=== PATIENT | male | born 1945 | race Caucasian/White ===

== ENCOUNTER 2022-03-07 03:49 | Inpatient (IN) ==
[2022-03-07] MEDS ORDERED: HYDROmorphone 0.5 MG/0.5 ML SYRINGE IV ONE (03:57)
[2022-03-07] MEDS ORDERED: AZITHROMYCIN 500 MG in DEXTROSE 5% IN WATER 250 ML IV ONE (04:12)
[2022-03-07] MEDS ORDERED: NALOXONE HCL 0.4 MG/ML VIAL IV PRN (04:38)
[2022-03-07] MEDS ORDERED: PROMETHAZINE 25 MG/ML VIAL IM PRN (04:38)
--- NOTE | 2022-03-07 04:45 | Emergency Department Note ---
Lower Extremity Injury HPI General Chief Complaint: Extremity Injury, Lower Stated Complaint: hip fracture Time Seen by Provider: 03/07/22 03:59 Source: EMS Mode of arrival: EMS Limitations: no limitations History of Present Illness HPI Narrative: Narrative: 77-year-old history of heart disease, hypertension, sleep apnea transferred here from [facility] after he was found to have a right hip periprosthetic fracture. He had that right hip replaced just last month on January [address] Hall. Was doing well but then last night he had a mechanical fall while getting up to use the bathroom and fracturing around the hardware. He did not hit his head or pass out. He was seen at [facility], where x-ray confirmed a periprosthetic fracture of the right hip. They obtained typical medical screening labs. They also obtained a chest x-ray because patient has been feeling a bit weak and has had a heavy cough. He was noted to have a right-sided pneumonia and was given a dose of Rocephin. They spoke with Dr. Hall who agreed to accept for further orthopedic management and he was sent here to our ER for hospitalist admission. Upon my evaluation patient is having pain at the right hip denies distal numbn ess tingling denies any head injury. Does also endorse that he has had a heavy productive cough but no chest pain no shortness of breath. No other complaints. No blood thinners he reports but does take aspirin. Related Data Home Medications Medication Instructions Recorded Confirmed acetaminophen 500 mg tablet 1,000 mg PO Q6H PRN 01/17/22 01/21/22 ascorbic acid (vitamin C) 1,000 mg 1 g PO QAM 01/17/22 01/21/22 tablet (Vitamin C) atorvastatin 40 mg tablet 40 mg PO QDAY 01/17/22 01/21/22 ferrous sulfate 325 mg (65 mg 325 mg PO QDAY 01/17/22 01/21/22 iron) tablet (iron) lisinopril 20 mg tablet 20 mg PO QDAY 01/17/22 01/21/22 multivitamin 1 tab PO QDAY 01/17/22 01/21/22 naproxen sodium 220 mg tablet 220 mg PO BID PRN 01/17/22 01/21/22 (Aleve) nitroglycerin 0.4 mg sublingual 0.4 mg SUBLINGUAL Q5M PRN 01/17/22 01/21/22 tablet omega 9-ruz-aid-fish oil 1,000 mg 1 cap PO QDAY 01/17/22 01/21/22 (120 mg-180 mg) capsule (Fish Oil) omeprazole 20 mg tablet,delayed 20 mg PO QDAY 01/17/22 01/21/22 release Previous Rx's Medication Instructions Recorded aspirin 81 mg tablet,delayed 81 mg PO BID #60 tab 01/21/22 release (Ecotrin Low Strength) docusate sodium 100 mg capsule 100 mg PO BID #60 cap 01/21/22 hydrocodone 10 mg-acetaminophen 1 - 2 tab PO Q4H PRN #75 tab 01/21/22 325 mg tablet Allergies Allergy/AdvReac Type Severity Reaction Status Date / Time No Known Drug Allergies Allergy Verified 01/21/22 07:18 Review of Systems ROS ROS Narrative: Narrative: All systems ED: reviewed and negative except as stated. PFSH Narrative Patient History Narrative: Narrative: Medical/Surgical/Family History All Active Problems (Updated 03/07/22 @ 04:44 by Cirilo Jaeger DO) Closed hip fracture (Acute) Pneumonia (Acute) Social History Smoking Status: Former smoker Exam Narrative Narrative: Narrative: Constitutional: normally developed, no acute distress . Head: Normocephalic, atraumatic, Eyes: No Icterus, ENT: Moist mucus membranes, Neck: Supple, Cardiac: Normal heart sounds, palpable radial and dorsalis pedis pulses, Pulmonary: Normal respiratory effort. Breath sounds clear, no wheeze, rhonchi, rales, Gastrointestinal: Abdomen soft, non-distended, non-tender, Musculoskeletal: Right lower extremity is slightly shortened and externally rotated but wiggles toes sensation and pulses intact. Skin: warm, dry Neuro: Alert and oriented. General Limitations: no limitations Course Vital Signs Vital signs: Vital Signs Temperature 37.4 C H 03/07/22 03:50 Pulse Rate 84 03/07/22 03:50 Respiratory Rate 17 03/07/22 03:50 Pulse Oximetry (%) 95 03/07/22 03:50 Temperature 37.4 C H 03/07/22 03:50 Pulse Rate 82 03/07/22 04:09 Respiratory Rate 17 03/07/22 03:50 Blood Pressure 105/67 03/07/22 04:06 Pulse Oximetry (%) 91 03/07/22 04:09 MDM MDM Narrative Medical decision making narrative: Narrative: Patient transferred here for right hip periprosthetic fracture Dr. Hall already aware, will be admitted to the hospitalist. Basic studies were already obtained at outside facility and they pushed over their imaging which I did review. I did review their labs: electrolytes sodium 132, potassium 3.8, chloride 97, bicarb 26, BUN 25, creatinine 1.56 Does also have mildly elevated ALT and AST is in the 100s range with a normal bilirubin CBC no leukocytosis, hemoglobin 12.3, platelets 243 Urinalysis negative for infection He was already given Rocephin at outside facility, I did add on 500 mg azithromycin for pneumonia. I have spoken with hospitalist who accepts admission. 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, no acute ischemia nor STEMI criteria Discharge Plan Patient/Caregiver Discharge Instructions Pt seen by [facility]/PA only: No Clinical Impression: Closed hip fracture, Pneumonia Patient Disposition: Xfer As Inpt ([facility]) Condition: Fair Follow up with: Ethan Melendez MD [Primary Care Provider] - Prescriptions: No Action multivitamin [Multiple Vitamin] Tablet 1 tab PO QDAY 0RF ascorbic acid (vitamin C) [Vitamin C] 1,000 mg Tablet 1 g PO QAM 0RF lisinopril 20 mg Tablet 20 mg PO QDAY 0RF acetaminophen 500 mg Tablet 1,000 mg PO Q6H PRN (Reason: Pain) 0RF ferrous sulfate [iron] 325 mg (65 mg iron) Tablet 325 mg PO QDAY 0RF Rx Instructions: Patient states taking one BID made him sick, regardless of taking with food. naproxen sodium [Aleve] 220 mg Tablet 220 mg PO BID PRN (Reason: Pain) 0RF omeprazole 20 mg Tablet,Delayed Release (Dr/Ec) 20 mg PO QDAY 0RF omega 5-hqb-xkn-fish oil [Fish Oil] 1,000 mg (120 mg-180 mg) Capsule 1 cap PO QDAY 0RF nitroglycerin 0.4 mg Tablet, Sublingual 0.4 mg SUBLINGUAL Q5M PRN (Reason: Chest Pain) 0RF Rx Instructions: do not exceed 3 doses per episode atorvastatin 40 mg Tablet 40 mg PO QDAY 0RF hydrocodone-acetaminophen 10-325 mg tablet 1 - 2 tab PO Q4H PRN (Reason: pain) Qty: 75 0RF aspirin [Ecotrin Low Strength] 81 mg tablet,delayed release (DR/EC) 81 mg PO BID Qty: 60 0RF docusate sodium 100 mg capsule 100 mg PO BID Qty: 60 0RF
[2022-03-07] MEDS: HYDROmorphone 0.5 MG/0.5 ML SYRINGE IV PRN ×5 (05:52→23:35)
[2022-03-07] MEDS: LACTATED RINGERS 1,000 ML IV SCH ×2 (05:52→18:46)
[2022-03-07] MEDS ORDERED: POLYETHYLENE GLYCOL 3350 17 GM PACKET PO PRN (07:55)
[2022-03-07] MEDS ORDERED: ACETAMINOPHEN 650 MG/65 ML BAG IV PRN (07:55)
[2022-03-07] MEDS ORDERED: ONDANSETRON 4 MG/2 ML VIAL IV PRN (07:55)
[2022-03-07] MEDS ORDERED: MAGNESIUM SULFATE 2 GM/50 ML BAG IV PRN (07:55)
[2022-03-07] MEDS ORDERED: POTASSIUM CHLORIDE 40 MEQ in DEXTROSE 5% IN WATER 500 ML IV PRN (07:55)
[2022-03-07] MEDS ORDERED: BISACODYL 10 MG SUPP.RECT PR PRN (07:55)
[2022-03-07] MEDS ORDERED: MELATONIN 3 MG TABLET PO PRN (07:55)
[2022-03-07] MEDS ORDERED: ONDANSETRON 4 MG ODT TABLET SL PRN (07:55)
--- NOTE | 2022-03-07 07:59 | Internal Med History&Physical ---
HPI History of Present Illness Patient information: Note initiated : 03/07/22 at 7:58 am Service Date, if different from initiated Date: [] Patient: Lita Topete a 77 y/o M admitted on 03/07/22 for Hip Fracture. Chief Complaint: [] History of present illness: Mr. Topete is a 77 year old M with a history of HTN/sleep apnea/PVD/HLD who presented to [place] ER last night after he fell in the bathroom. Patient apparently has problems with incontinence and dribbling and was trying to get back from the hospital and missed the door handle and subsequently landed on the floor sustaining injury to the right lower extremity. He was down on the floor where his discovered him and got him to the ER. Initial work-up was consistent with right hip fracture periprosthetic area. Orthopedics Dr. Hall was consulted and recommended transfer to [facility] for further evaluation. Additionally chest imaging consistent with right-sided pneumonia. Patient was started on Rocephin/crystalloid/pain medications. After brief evaluation the ER hospital service was consulted for admission to facilitate orthopedic intervention/management of pneumonia. At the time of evaluation patient is alert and oriented. He endorses history as above. He was recently discharged following right total hip arthroplasty on January 22 and has been getting rehab at [place]. He also never felt well post surgery and has been battling with constipation, loss of appetite, over 15 pound weight loss in the last few days. He also endorses to shortness of breath, fever, chills for which he was evaluated in the ER on Friday and was diagnosed with stomach flu. He also endorses to weakness, dribbling urine, lightheadedness fatigue malaise and not been able to function Review of systems 10 point review system was performed and is negative except as above PFSH PFSH All Active Problems (Updated 03/07/22 @ 04:44 by Cirilo Jaeger DO) Closed hip fracture (Acute) Pneumonia (Acute) MEDS/ALLERGIES Home Medications and Allergies Home Medications Medication Instructions Recorded Confirmed Type acetaminophen 500 mg tablet 1,000 mg PO Q6H PRN 01/17/22 03/07/22 History ascorbic acid (vitamin C) 1,000 mg 1 g PO QAM 01/17/22 03/07/22 History tablet (Vitamin C) atorvastatin 40 mg tablet 40 mg PO QDAY 01/17/22 03/07/22 History ferrous sulfate 325 mg (65 mg 325 mg PO QDAY 01/17/22 03/07/22 History iron) tablet (iron) lisinopril 20 mg tablet 20 mg PO QDAY 01/17/22 03/07/22 History multivitamin 1 tab PO QDAY 01/17/22 03/07/22 History naproxen sodium 220 mg tablet 220 mg PO BID PRN 01/17/22 03/07/22 History (Aleve) nitroglycerin 0.4 mg sublingual 0.4 mg SUBLINGUAL Q5M PRN 01/17/22 03/07/22 History tablet omega 4-poy-nef-fish oil 1,000 mg 1 cap PO QDAY 01/17/22 03/07/22 History (120 mg-180 mg) capsule (Fish Oil) omeprazole 20 mg tablet,delayed 20 mg PO QDAY 01/17/22 03/07/22 History release aspirin 81 mg tablet,delayed 81 mg PO BID #60 tab 01/21/22 03/07/22 Rx release (Ecotrin Low Strength) docusate sodium 100 mg capsule 100 mg PO BID #60 cap 01/21/22 03/07/22 Rx hydrocodone 10 mg-acetaminophen 1 - 2 tab PO Q4H PRN #75 tab 01/21/22 03/07/22 Rx 325 mg tablet Allergies Allergy/AdvReac Type Severity Reaction Status Date / Time No Known Drug Allergies Allergy Verified 03/07/22 06:31 EXAM Constitutional Vitals: Temp Pulse Resp BP Pulse Ox 97.7 F 78 18 126/81 98 03/07/22 07:18 03/07/22 07:18 03/07/22 07:18 03/07/22 05:40 03/07/22 07:18 Head normocephalic Oral cavity moist No ear or nose discharge Eye no subconjunctival pallor, movement symmetrical S1-S2 regular Minimally labored breathing on 1 L oxygen Distended but nontender abdomen Lower extremity no cyanosis clubbing or joint swelling, right lower extremity slightly shortened pain at right groin, RUE prior digital amputations Skin no suspicious lesion Psych anxious but no hallucination Neuro normal higher function on limited neuro exam A/P Narrative A/P Narrative: * Community-acquired pneumonia, empiric antibiotic coverage, sputum cultures * Right hip fracture, orthopedic consulted. Continue pain management/n.p.o. * Mild hypoxia secondary to pneumonia. Continue supplemental oxygen * Preop risk evaluation-based on RCRI [place] [employer] stratification patient would be a moderate to high risk category in the setting of advanced a ge/sleep apnea/functional metabolic equivalent of 1 at baseline., However there are no modifiable risk factors other than pneumonia which is mild considering patient is nontoxic with a normal white count,No history of decompensated heart failure/CVA or recent CT, stable hemodynamics. Surgery and anesthesia specific risks will be addressed by individual care providers. * History of CAD status post stenting currently on aspirin/statin and managed by Dr. Gill cardiology * Obstructive sleep apnea continue CPAP * History of hypertension hold antihypertensives until surgery. * GERD continue PPI * HLD continue statin Plan * Inpatient admission * Orthopedic consult * Antibiotic coverage * N.p.o. * Pre-existing medical condition management home medications * Postop PT/nutrition support Time Spent With Patient Time: Total time spent is greater than 50% in coordination of care (as documented) at patient's floor/unit and/or counseling patient:
[2022-03-07] MEDS: MULTIVIT,THER IRON,CA,FA & MIN 1 TABLET PO SCH (10:14)
[2022-03-07] MEDS: DOCUSATE SODIUM 100 MG CAPSULE PO SCH ×2 (10:14→20:20)
[2022-03-07] MEDS: cefTRIAXone 2 GM in DEXTROSE 5% IN WATER 50 ML IV SCH (10:26)
[2022-03-07] MEDS: 0.9 % SODIUM CHLORIDE 10 ML SYRINGE IV SCH ×2 (16:21→20:22)
[2022-03-07] MEDS ORDERED: oxyCODONE HCL 5 MG TABLET PO PRN (19:27)
[2022-03-07] MEDS ORDERED: TEMAZEPAM 15 MG CAPSULE PO PRN (19:29)
[2022-03-07] MEDS: METHOCARBAMOL 750 MG TABLET PO PRN (20:20)
[2022-03-07] MEDS: oxyCODONE HCL 5 MG TABLET PO PRN (20:21)
[2022-03-07] MEDS: SENNOSIDES/DOCUSATE SODIUM 1 TAB TABLET PO SCH (20:22)
--- NOTE | 2022-03-07 20:54 | EKG ---
[facility] Test Date: 2022-03-07 Pat Name: Lita Topete Department: ED Room: Gender: Male Retail Advisor: NATALIE : 1945 Requested By: Cirilo Jaeger Order Number: [id number] Reading MD: Benson Wei Measurements Intervals [place] Rate: 79 P: 42 OR: 157 QRS: 8 QRSD: 96 T: 3 QT: 366 QTc: 420 Interpretive Statements Sinus rhythm Probable left atrial enlargement Inferior infarct, old Baseline wander in lead(s) V5 Electronically Signed On 03-07-2022 20:54:28 PDT by Benson Wei /store/M0/[id number]
[2022-03-08] MEDS: oxyCODONE HCL 5 MG TABLET PO PRN ×2 (05:25→20:43)
[2022-03-08] MEDS: METHOCARBAMOL 750 MG TABLET PO PRN ×2 (05:25→20:43)
[2022-03-08] MEDS: 0.9 % SODIUM CHLORIDE 10 ML SYRINGE IV SCH ×4 (05:26→20:48)
[2022-03-08] MEDS: LACTATED RINGERS 1,000 ML IV SCH ×4 (05:30→22:44)
[2022-03-08] MEDS: ACETAMINOPHEN 325 MG TABLET PO PRN (05:50)
[2022-03-08] MEDS ORDERED: ceFAZolin 2 GM in DEXTROSE 5% IN WATER 50 ML IV SCH (06:00)
[2022-03-08 06:44] LABS: Basophils # (Auto) 0.01 K/mcL (0.00-0.30); Basophils % (Auto) 0.2 % (0.0-2.0); Eosinophils # (Auto) 0.08 K/mcL (0.00-0.70); Eosinophils % (Auto) 1.4 % (0.0-7.0); Hematocrit 33.8 % (40.1-51.0); Hemoglobin 11.3 g/dL (13.7-17.5); Lymphocytes # (Auto) 0.64 K/mcL (1.50-4.80); Lymphocytes % (Auto) 11.1 % (15.5-49.0); Mean Cell Volume 89.9 fL (80.0-100.0); Mean Corpuscular HGB Conc 33.4 g/dL (31.0-36.0); Mean Platelet Volume 10.8 fL (7.4-10.4); Monocytes # (Auto) 0.75 K/mcL (0.10-0.90); Neutrophils % (Auto) 74.3 % (38.0-78.0); Platelet Count 231 K/mcL (140-440); RBC 3.76 M/mcL (4.63-6.08); Red Cell Distribution Width 13.3 % (11.5-14.5); WBC 5.8 K/mcL (4.5-11.0)
[2022-03-08 07:11] LABS: ALT/SGPT 113 U/L (<40); AST/SGOT 79 U/L (<40); Albumin 2.7 gm/dL (3.2-5.2); Albumin/Globulin Ratio 1.1 (1.0-2.3); Alkaline Phosphatase 235 U/L (39-117); Bilirubin,Direct 0.5 mg/dL (<0.3); Bilirubin,Total 0.8 mg/dL (0.1-1.0); Blood Urea Nitrogen 15 mg/dL (8-23); Calcium 8.1 mg/dL (8.6-10.4); Carbon Dioxide 26 mmol/L (22-30); Chloride 97 mmol/L (96-108); Globulin 2.5 gm/dL (2.2-3.7); Glomerular Filtration Rate 83; Glucose 127 mg/dL (70-105); Lactate Dehydrogenase 238 U/L (135-225); Phosphorous 2.9 mg/dL (2.5-4.5); Triglycerides 128 mg/dL (<150); Uric Acid 4.1 mg/dL (2.5-8.0)
--- NOTE | 2022-03-08 07:16 | Consultation ---
DATE OF CONSULTATION: 03/07/2022 HISTORY OF PRESENT ILLNESS: A 77-year-old with a history of right hip periprosthetic fracture. He had surgery about 6 weeks ago where he had a cementless hip. He states that this occurred when he was going to the bathroom, he had frequency and had not been feeling well, fell down, sustaining a fracture. He laid on the floor until he had assistance. They have taken him into the Emergency Room where he was diagnosed with a periprosthetic right femur fracture. With this, I have ordered another x-ray to help see if there is any way to salvage the stem or if we can just plate the bone around it to make him weightbearing as tolerated. He is receiving antibiotics for the pneumonia. PAST MEDICAL HISTORY: Does have urinary incontinence and difficulties. His vitals have been fairly normal. ALLERGIES: HE LISTS NONE. CURRENT MEDICATIONS: Include Adderall, Avastin 40 mg p.o. every day. He has been on hydrocodone p.r.n. for pain. He has been on lisinopril 20 mg every day, nitroglycerin 0.4 mg sublingual for chest pain, omeprazole for ulcers. PHYSICAL EXAMINATION: GENERAL: He is a very pleasant 77-year-old, who gives an excellent history, in quite a bit of pain today. He is about 5 feet 8 inches, 228 pounds, in good overall condition. LUNGS: He does have some rales or rhonchi on his right side, but no difficulty in breathing. CARDIOVASCULAR: Regular rate and rhythm. No murmurs, rubs, or gallops. EXTREMITIES: His right leg shortened and externally rotated. His foot is pink and warm. No open wounds, lacerations, or abrasions. We have ordered x-rays of his right hip. Ironside x-rays show a periprosthetic fracture of the right hip with a total hip in place. I talked to the patient about the treatment options. There are not any real options other than to fix the fracture and try to bypass the fracture enough to allow him to be weightbearing. This will be done tomorrow about noon. In the meantime, they stabilized the pneumonia with antibiotics. He understands the risks and benefits of the surgery, heart attacks and strokes are real possibilities. We will let the patient eat today and even drink apple juice up until 2 hours prior to his surgery, which would be scheduled at 2:00 p.m. tomorrow. RBH:erich Job ID: [id number] Doc ID: [id number] Jaciel Sibley MD
--- NOTE | 2022-03-08 07:34 | XRay Report ---
HISTORY: Fracture proximal right femur FINDINGS: There is an acute, long obliquely oriented fracture of the proximal right femur. Extends from the distal end of the greater trochanter, across the metal hip prosthesis to the medial shaft of the femur. There is mild varus angulation. The prosthesis remains well-positioned and is not fractured. The alignment is unchanged from the prior x-ray done at [facility] on 03/06/22. IMPRESSION: Fractured proximal right femur with mild angulation deformity Interpreted and Authenticated by: Dilan Rdz 03/08/22
--- NOTE | 2022-03-08 07:44 | XRay Report ---
HISTORY: Follow-up pneumonia FINDINGS: There is a moderate size consolidating infiltrate in the right lower thorax. This obscures the right heart border. This is predominantly located in the right middle lobe there may be involvement in the right lower lobe as well. This has become worse since 03/06/22. Right upper lobe is clear. Left lung is clear. No pleural effusion is present. The heart size is normal. No pulmonary vascular congestion is present. 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 IMPRESSION: Worsening pneumonia in the right middle lobe Interpreted and Authenticated by: Dilan Rdz 03/08/22
--- NOTE | 2022-03-08 08:17 | Internal Med Progress Note ---
SUBJECTIVE Subjective Patient information: Note initiated : 03/08/22 at 8:12 am Service Date, if different from initiated Date: [] Patient: Lita Topete a 77 y/o M admitted on 03/07/22 for Hip Fracture. Chief Complaint: [] Interval history: Mr. Topete is a 77 year old M with a history of HTN/sleep apnea/PVD/HLD who presented to [place] ER last night after he fell in the bathroom. Patient apparently has problems with incontinence and dribbling and was trying to get back from the hospital and missed the door handle and subsequently landed on the floor sustaining injury to the right lower extremity. He was down on the floor where his discovered him and got him to the ER. Initial work-up was consistent with right hip fracture periprosthetic area. Orthopedics Dr. Hall was consulted and recommended transfer to [facility] for further evaluation. Additionally chest imaging consistent with right-sided pneumonia. Patient was started on Rocephin/crystalloid/pain medications. After brief evaluation the ER hospital service was consulted for admission to facilitate orthopedic intervention/management of pneumonia. Pain in good control, white count 5.8, sodium 133, 03/08 patient overnight stable, currently n.p.o., surgery at 2 PM, continuing antibiotics. Denies fever chills, currently on room air. Stable hemodynamics. No additional concerns expressed with nursing staff. Will review postop. Constitutional Vitals: Vital Signs Temp Pulse Resp BP Pulse Ox 97.3 F 90 17 139/72 93 03/08/22 07:15 03/08/22 07:15 03/08/22 07:15 03/08/22 07:15 03/08/22 07:15 Period Temp Pulse Resp BP Sys/Chavez Pulse Ox Last 24 Hr 97.0 F-102.3 F 81-103 - 112-140/60-79 87-95 Intake and Output 03/07/22 03/08/22 03/08/22 21:59 05:59 13:59 Intake Total 1768 1205 Output Total 450 1000 Balance 1318 205 Weight 104.689 kg Alert oriented Nonlabored breathing Right hip pain and restricted movement On room air No anxiety Intake & Output: Intake & Output 03/07/22 03/08/22 03/08/22 21:59 05:59 13:59 Intake Total 1768 1205 Output Total 450 1000 Balance 1318 205 Weight 104.689 kg Intake: IV 968 805 Lactated Ringers 1,000 ml @ 75 968 805 mls/hr IV .[id number] [facility] Rx#: [id number] Oral 800 400 Output: Urine Catheter Amount 450 1000 Other: Meal Dinner Percent of Meal Consumed 100% Feeding Ability Independent Urine Appearance Clear Clear Uretheral (Reyna) Clear Urine Color Bright Yellow Bright Yellow Uretheral (Reyna) Bright Yellow # Bowel Movements 0 OBJ DATA Labs CBC & Chem 7: 03/08/22 05:35 03/08/22 05:35 Labs: Abnormal Lab Results 03/08/22 03/08/22 03/07/22 05:35 05:35 08:09 RBC 3.76 L Hgb 11.3 L Hct 33.8 L MPV 10.8 H Lymph % (Auto) 11.1 L [place] % (Auto) 13.0 H Lymph # (Auto) 0.64 L Glucose 127 H Calcium 8.1 L Direct Bilirubin 0.5 H GGT 272 H AST 79 H ALT 113 H Alkaline Phosphatase 235 H Lactate Dehydrogenase 238 H Total Protein 5.2 L Albumin 2.7 L Procalcitonin 0.50 H Meds: Medications Acetaminophen (Acetaminophen 325 Mg Tablet) 650 mg PO Q4-6HP PRN; Protocol PRN Reason: Per Pain Protocol/Fever > 101 Last Admin: 03/08/22 05:50 Dose: 650 mg Documented by: Bisacodyl (Bisacodyl 10 Mg Supp.Rect) [address] Q2-3DAYS PRN PRN Reason: Constipation Docusate Sodium (Docusate Sodium 100 Mg Capsule) 100 mg PO BID [facility] Last Admin: 03/07/22 20:20 Dose: 100 mg Documented by: Hydromorphone HCl (Hydromorphone 0.5 Mg/0.5 Ml Syringe) 0.5 mg IV Q2HP PRN; Protocol PRN Reason: Per Pain Protocol Last Admin: 03/07/22 23:35 Dose: 0.5 mg Documented by: Lactated Ringer's (Lactated Ringers) 1,000 mls @ 75 mls/hr IV .[id number] [facility] Last Admin: 03/08/22 05:30 Dose: 75 mls/hr Documented by: Azithromycin 500 mg/ Dextrose 250 mls @ 250 mls/hr IV Q24H GLORY; Protocol Stop: 03/09/22 10:59 Potassium Chloride 40 meq/ (Dextrose) 520 mls @ 130 mls/hr IV UD PRN PRN Reason: K+ = or < 3.5 Acetaminophen (Ofirmev) 650 mg in 65 mls @ 130 mls/hr IV Q6HP PRN; Protocol PRN Reason: Per Pain Protocol/Fever > 101 Magnesium Sulfate (Magnesium Sulfate) 2 gm in 50 mls @ 50 mls/hr IV UD PRN PRN Reason: MG = or < 1.7 Ceftriaxone Sodium 2 gm/ (Dextrose) 50 mls @ 100 mls/hr IV Q24H GLORY; Protocol Last Infusion: 03/07/22 11:00 Dose: Infused Documented by: Cefazolin Sodium 2 gm/ (Dextrose) 50 mls @ 100 mls/hr IV PREOP GLROY; Protocol Stop: 03/08/22 17:00 Iron Carb/Multivit/[place]/Folic Acid (Multivit,Ther Iron,Ca,Fa & Min 1 Tablet) 1 tab PO DAILY [facility] Last Admin: 03/07/22 10:14 Dose: Not Given Documented by: Melatonin (Melatonin 3 Mg Tablet) 3 mg PO HSP PRN PRN Reason: Insomnia Methocarbamol (Methocarbamol 750 Mg Tablet) 750 mg PO Q6HP PRN PRN Reason: Muscle Spasm Last Admin: 03/08/22 05:25 Dose: 750 mg Documented by: Naloxone HCl (Naloxone Hcl 0.4 Mg/Ml Vial) 0.1 mg IV Q2MIN PRN PRN Reason: Opiate Reversal Ondansetron HCl (Ondansetron 4 Mg Odt Tablet) 4 mg SL Q4-6HP PRN; Protocol PRN Reason: Nausea And Vomiting Ondansetron HCl (Ondansetron 4 Mg/2 Ml Vial) 4 mg IV Q4-6HP PRN; Protocol PRN Reason: Nausea And Vomiting Oxycodone HCl (Oxycodone Hcl 5 Mg Tablet) 0 mg PO Q4HP PRN; Protocol PRN Reason: Per Pain Protocol Last Admin: 03/08/22 05:25 Dose: 10 mg Documented by: Polyethylene Glycol (Polyethylene Glycol 3350 17 Gm Packet) 17 gm PO DAILYP PRN PRN Reason: Constipation Promethazine HCl (Promethazine 25 Mg/Ml Vial) 12.5 mg IM Q6HP PRN; Protocol PRN Reason: Nausea And Vomiting Senna/Docusate Sodium (Sennosides/Docusate Sodium 1 Tab Tablet) 1 tab PO HS [facility] Last Admin: 03/07/22 20:22 Dose: 1 tab Documented by: Sodium Chloride (0.9 % Sodium Chloride 10 Ml Syringe) 10 ml IV Q8 [facility] Last Admin: 03/08/22 05:26 Dose: Not Given Documented by: Temazepam (Temazepam 15 Mg Capsule) 15 mg PO HSP PRN PRN Reason: Insomnia A/P Narrative A/P Narrative: * Community-acquired pneumonia, clinically responding to empiric antibiotic coverage, sputum cultures negative so far. Normal white count * Right hip fracture periprosthetic orthopedic consulted. Surgery at 2 PM. Currently n.p.o. * Mild hypoxia secondary to pneumonia. Resolved now on room air * Preop risk evaluation-based on RCRI [place] [employer] stratification patient would be a moderate to high risk category in the setting of advanced age/sleep apnea/functional metabolic equivalent of 1 at baseline., However there are no modifiable risk factors other than pneumonia which is mild considering patient is nontoxic with a normal white count, No history of decompensated heart failure/CVA or recent MA, CKD or IDDM, stable hemodynamics. Surgery and anesthesia specific risks will be addressed by individual care providers. * History of CAD status post stenting currently on aspirin/statin and managed by Dr. Gill cardiology * Obstructive sleep apnea continue CPAP at night * History of hypertension hold antihypertensives until surgery. * GERD continue PPI * HLD continue statin Plan * Review postop * Continue antibiotic coverage * N.p.o./pain management * Pre-existing medical condition management home medications * Postop PT/nutrition support Time Spent With Patient Time: Total time spent is greater than 50% in coordination of care (as documented) at patient's floor/unit and/or counseling patient: QUALITY VTE Deep Vein Thrombosis/Pulmonary Embolism Present on Admission: No
[2022-03-08] MEDS: cefTRIAXone 2 GM in DEXTROSE 5% IN WATER 50 ML IV SCH (08:21)
[2022-03-08] MEDS: DOCUSATE SODIUM 100 MG CAPSULE PO SCH ×2 (11:06→20:43)
[2022-03-08] MEDS: MULTIVIT,THER IRON,CA,FA & MIN 1 TABLET PO SCH (11:07)
[2022-03-08] MEDS: AZITHROMYCIN 500 MG in DEXTROSE 5% IN WATER 250 ML IV SCH (11:24)
[2022-03-08] MEDS ORDERED: NITROGLYCERIN 0.4 MG TAB.SUBL SL PRN (12:44)
--- NOTE | 2022-03-08 12:44 | Internal Med Progress Note ---
SUBJECTIVE Subjective Patient information: Note initiated : 03/08/22 at 12:39 pm Service Date, if different from initiated Date: [] Patient: Lita Topete a 77 y/o M admitted on 03/07/22 for Hip Fracture. Chief Complaint: [] Interval history: Mr. Topete is a 77 year old M with a history of HTN/sleep apnea/PVD/HLD who presented to [place] ER last night after he fell in the bathroom. Patient apparently has problems with incontinence and dribbling and was trying to get back from the hospital and missed the door handle and subsequently landed on the floor sustaining injury to the right lower extremity. He was down on the floor where his discovered him and got him to the ER. Initial work-up was consistent with right hip fracture periprosthetic area. Orthopedics Dr. Hall was consulted and recommended transfer to [facility] for further evaluation. Additionally chest imaging consistent with right-sided pneumonia. Patient was started on Rocephin/crystalloid/pain medications. After brief evaluation the ER hospital service was consulted for admission to facilitate orthopedic intervention/management of pneumonia. Pain in good control, white count 5.8, sodium 133, 03/08 patient overnight stable, currently n.p.o., surgery at 2 PM, continuing antibiotics. Denies fever chills, currently on room air. Stable hemodynamics. No additional concerns expressed with nursing staff. Will review postop. Constitutional Vitals: Vital Signs Temp Pulse Resp BP Pulse Ox 97.1 F 80 20 130/73 99 03/08/22 11:00 03/08/22 11:00 03/08/22 11:00 03/08/22 11:00 03/08/22 11:00 Period Temp Pulse Resp BP Sys/Chavez Pulse Ox Last 24 Hr 97.0 F-102.3 F 80-103 17-22 130-140/67-79 87-99 Intake and Output 03/07/22 03/08/22 03/08/22 21:59 05:59 13:59 Intake Total 1768 1205 50 Output Total 450 1000 Balance 1318 205 50 Weight 104.689 kg 104.689 kg Patient Weight 03/09/22 05:59 Weight 104.689 kg Intake & Output: Intake & Output 03/07/22 03/08/22 03/08/22 21:59 05:59 13:59 Intake Total 1768 1205 50 Output Total 450 1000 Balance 1318 205 50 Weight 104.689 kg 104.689 kg Intake: IV 968 805 50 Lactated Ringers 1,000 ml @ 75 968 805 mls/hr IV .[id number] [facility] Rx#: [id number] Rocephin 2 gm In Dextrose 5% in 50 Water 50 ml @ 100 mls/hr IV Q24H [facility] Rx#:[id number] Oral 800 400 Output: Urine Catheter Amount 450 1000 Other: Meal Dinner Percent of Meal Consumed 100% Feeding Ability Independent Urine Appearance Clear Clear Uretheral (Eryna) Clear Urine Color Bright Yellow Bright Yellow [place] Uretheral (Reyna) Bright Yellow [place] # Bowel Movements 0 Exam: General: Alert, Awake, No acute Distress, obese Eyes/N/T: EOMI, Head/Neck: neck supple, CV: RRR, No murmurs, Pulm: Clear b/l, no wheezing/rhonchi/rales Abd: soft, nontender, +BS x4 Ext: no clubbing/cyanosis/edema Neuro: Alert, no focal deficits, moves all extremities, Skin: warm/dry OBJ DATA Labs CBC & Chem 7: 03/08/22 05:35 03/08/22 05:35 Labs: Abnormal Lab Results 03/08/22 03/08/22 03/07/22 05:35 05:35 08:09 RBC 3.76 L Hgb 11.3 L Hct 33.8 L MPV 10.8 H Lymph % (Auto) 11.1 L [place] % (Auto) 13.0 H Lymph # (Auto) 0.64 L Glucose 127 H Calcium 8.1 L Direct Bilirubin 0.5 H GGT 272 H AST 79 H ALT 113 H Alkaline Phosphatase 235 H Lactate Dehydrogenase 238 H Total Protein 5.2 L Albumin 2.7 L Procalcitonin 0.50 H Meds: Medications Acetaminophen (Acetaminophen 325 Mg Tablet) 650 mg PO Q4-6HP PRN; Protocol PRN Reason: Per Pain Protocol/Fever > 101 Last Admin: 03/08/22 05:50 Dose: 650 mg Documented by: Bisacodyl (Bisacodyl 10 Mg Supp.Rect) 10 mg [place] Q2-3DAYS PRN PRN Reason: Constipation Docusate Sodium (Docusate Sodium 100 Mg Capsule) 100 mg PO BID [facility] Last Admin: 03/08/22 11:06 Dose: Not Given Documented by: Hydromorphone HCl (Hydromorphone 0.5 Mg/0.5 Ml Syringe) 0.5 mg IV Q2HP PRN; Protocol PRN Reason: Per Pain Protocol Last Admin: 03/07/22 23:35 Dose: 0.5 mg Documented by: Lactated Ringer's (Lactated Ringers) 1,000 mls @ 75 mls/hr IV .[id number] [facility] Last Admin: 03/08/22 05:30 Dose: 75 mls/hr Documented by: Azithromycin 500 mg/ Dextrose 250 mls @ 250 mls/hr IV Q24H [facility]; Protocol Stop: 03/09/22 10:59 Last Admin: 03/08/22 11:24 Dose: 250 mls/hr Documented by: Potassium Chloride 40 meq/ (Dextrose) 520 mls @ 130 mls/hr IV UD PRN PRN Reason: K+ = or < 3.5 Acetaminophen (Ofirmev) 650 mg in 65 mls @ 130 mls/hr IV Q6HP PRN; Protocol PRN Reason: Per Pain Protocol/Fever > 101 Magnesium Sulfate (Magnesium Sulfate) 2 gm in 50 mls @ 50 mls/hr IV UD PRN PRN Reason: MG = or < 1.7 Ceftriaxone Sodium 2 gm/ (Dextrose) 50 mls @ 100 mls/hr IV Q24H [facility]; Protocol Last Infusion: 03/08/22 08:55 Dose: Infused Documented by: Cefazolin Sodium 2 gm/ (Dextrose) 50 mls @ 100 mls/hr IV PREOP [facility]; Protocol Stop: 03/08/22 17:00 Iron Carb/Multivit/Office Equipment Technician/Folic Acid (Multivit,Ther Iron,Ca,Fa & Min 1 Tablet) 1 tab PO DAILY [facility] Last Admin: 03/08/22 11:07 Dose: Not Given Documented by: Melatonin (Melatonin 3 Mg Tablet) 3 mg PO HSP PRN PRN Reason: Insomnia Methocarbamol (Methocarbamol 750 Mg Tablet) 750 mg PO Q6HP PRN PRN Reason: Muscle Spasm Last Admin: 03/08/22 05:25 Dose: 750 mg Documented by: Naloxone HCl (Naloxone Hcl 0.4 Mg/Ml Vial) 0.1 mg IV Q2MIN PRN PRN Reason: Opiate Reversal Ondansetron HCl (Ondansetron 4 Mg Odt Tablet) 4 mg SL Q4-6HP PRN; Protocol PRN Reason: Nausea And Vomiting Ondansetron HCl (Ondansetron 4 Mg/2 Ml Vial) 4 mg IV Q4-6HP PRN; Protocol PRN Reason: Nausea And Vomiting Oxycodone HCl (Oxycodone Hcl 5 Mg Tablet) 0 mg PO Q4HP PRN; Protocol PRN Reason: Per Pain Protocol Last Admin: 03/08/22 05:25 Dose: 10 mg Documented by: Polyethylene Glycol (Polyethylene Glycol 3350 17 Gm Packet) 17 gm PO DAILYP PRN PRN Reason: Constipation Promethazine HCl (Promethazine 25 Mg/Ml Vial) 12.5 mg IM Q6HP PRN; Protocol PRN Reason: Nausea And Vomiting Senna/Docusate Sodium (Sennosides/Docusate Sodium 1 Tab Tablet) 1 tab PO HS [facility] Last Admin: 03/07/22 20:22 Dose: 1 tab Documented by: Sodium Chloride (0.9 % Sodium Chloride 10 Ml Syringe) 10 ml IV Q8 [facility] Last Admin: 03/08/22 05:26 Dose: Not Given Documented by: Temazepam (Temazepam 15 Mg Capsule) 15 mg PO HSP PRN PRN Reason: Insomnia A/P Narrative A/P Narrative: A: *CAP: -clinically responding to empiric antibiotic coverage -sputum cultures negative so far *Right Hip FX: *Preop risk evaluation-based on RCRI [place] [employer] stratification p atient would be a moderate-high risk category in the setting of advanced age/sleep apnea/functional metabolic equivalent of 1 at baseline -However there are no modifiable risk factors other than pneumonia which is mild *Mild hypoxia: 2/2 pneumonia. Resolved now on room air *CAD w/stent: on aspirin/statin and managed by Dr. Gill cardiology *RILEY w/CPAP at night: *HTN/HLD:GERD continue PPI *GERD: Plan: -Ortho for ORIF -Review postop -Continue antibiotic coverage -N.p.o./pain management -Postop PT/nutrition support -home ACEI post op -cont home statin, restart ASA post-op -ppx: post-op per Ortho / home ppi Time Spent With Patient Time: Total time spent is greater than 50% in coordination of care (as documented) at patient's floor/unit and/or counseling patient: QUALITY VTE Deep Vein Thrombosis/Pulmonary Embolism Present on Admission: No
[2022-03-08] MEDS ORDERED: PROPOFOL 200 MG/20 ML VIAL IV ONE (15:00)
[2022-03-08] MEDS ORDERED: DEXAMETHASONE 10 MG/ML VIAL ONE (15:00)
[2022-03-08] MEDS ORDERED: TRANEXAMIC ACID 1,000 MG/10 ML VIAL ONE (15:00)
[2022-03-08] MEDS ORDERED: HYDROmorphone 1 MG/ML SYRINGE ONE (15:00)
[2022-03-08] MEDS ORDERED: LIDOCAINE HCL/PF 100 MG/5 ML SYRINGE IV ONE (15:00)
[2022-03-08] MEDS ORDERED: ROPIVACAINE HCL/PF 20 ML VIAL IJ ONE (15:00)
[2022-03-08] MEDS ORDERED: KETAMINE 50 MG/ML Syringe (ANEST) IV ONE (15:00)
[2022-03-08] MEDS ORDERED: ONDANSETRON 4 MG/2 ML VIAL ONE (15:00)
[2022-03-08] MEDS ORDERED: MAGNESIUM SULFATE 2 GM/50 ML BAG IV ONE (15:00)
[2022-03-08] MEDS ORDERED: MEPERIDINE 25 MG/ML VIAL IV PRN (16:23)
[2022-03-08] MEDS ORDERED: IPRATROPIUM/ALBUTEROL 3 ML AMPUL.NEB NEB PRN (16:23)
[2022-03-08] MEDS ORDERED: NALOXONE HCL 0.4 MG/ML VIAL IV PRN (16:23)
[2022-03-08] MEDS ORDERED: diphenhydrAMINE 50 MG/ML VIAL IV PRN (16:23)
[2022-03-08] MEDS ORDERED: LACTATED RINGERS 250 ML IV PRN (16:23)
[2022-03-08] MEDS ORDERED: fentaNYL 100 MCG/2 ML VIAL IV PRN (16:23)
[2022-03-08] MEDS ORDERED: ONDANSETRON 4 MG/2 ML VIAL IV PRN ×3 (16:23→16:52)
[2022-03-08] MEDS ORDERED: HYDROmorphone 0.5 MG/0.5 ML SYRINGE IV PRN (16:23)
[2022-03-08] MEDS ORDERED: PROMETHAZINE 25 MG/ML VIAL IV PRN (16:23)
[2022-03-08] MEDS ORDERED: LACTATED RINGERS 1,000 ML IV SCH (16:30)
[2022-03-08] MEDS ORDERED: ACETAMINOPHEN 325 MG TABLET PO PRN (16:52)
[2022-03-08] MEDS ORDERED: TRANEXAMIC ACID 1,000 MG/10 ML VIAL IV SCH (16:52)
[2022-03-08] MEDS ORDERED: BISACODYL 10 MG SUPP.RECT PR PRN (16:52)
[2022-03-08] MEDS ORDERED: HYDROmorphone 1 MG/ML SYRINGE IV PRN (16:52)
[2022-03-08] MEDS ORDERED: POLYETHYLENE GLYCOL 3350 17 GM PACKET PO PRN (16:52)
[2022-03-08] MEDS ORDERED: FLEETS ADULT ENEMA PR PRN (16:52)
[2022-03-08] MEDS ORDERED: TEMAZEPAM 15 MG CAPSULE PO PRN (16:52)
--- NOTE | 2022-03-08 17:09 | Brief Operative Note ---
Brief Operative Note Date of procedure: 03/08/22 Pre-op diagnosis: Right femur fx Post-op diagnosis: same Procedure: right femur orif and revision femoral stem Grafts/Implants: Yes Anesthesia: GETA Complications: none Surgeon: Jaciel Sibley Screen Roller: oJse Lopez Estimated blood loss (cc): 250 Specimens Removed/Pathology: none sent Condition: stable Disposition: PACU
--- NOTE | 2022-03-08 17:21 | XRay Report ---
HISTORY: Postop repair fractured right femur FINDINGS: The right hip prosthesis has been revised. There is a new femoral component which has a long andriy. The andriy extends down to the mid shaft of the femur. This holds the oblique fracture in the proximal femur in good alignment. There are cerclage wires around the fracture line. The angulation seen preoperatively has been corrected. IMPRESSION: good alignment following repair of the fractured proximal right femur Interpreted and Authenticated by: Dilan Rdz 03/08/22
[2022-03-08] MEDS: ASPIRIN 81 MG TAB.CHEW CHEWED SCH (20:43)
[2022-03-08] MEDS: SENNOSIDES/DOCUSATE SODIUM 1 TAB TABLET PO SCH (20:46)
[2022-03-08] MEDS ORDERED: SENNOSIDES 1 TABLET PO SCH (21:00)
[2022-03-08] MEDS ORDERED: DOCUSATE SODIUM 100 MG CAPSULE PO SCH (21:00)
[2022-03-08] MEDS: ceFAZolin 1 GM VIAL IV SCH (23:02)
[2022-03-09] MEDS: oxyCODONE HCL 5 MG TABLET PO PRN (03:43)
[2022-03-09] MEDS: LACTATED RINGERS 1,000 ML IV SCH (03:44)
[2022-03-09] MEDS: 0.9 % SODIUM CHLORIDE 10 ML SYRINGE IV SCH ×5 (05:12→20:39)
[2022-03-09 06:53] LABS: Basophils # (Auto) 0.01 K/mcL (0.00-0.30); Basophils % (Auto) 0.2 % (0.0-2.0); Eosinophils # (Auto) 0 K/mcL (0.00-0.70); Eosinophils % (Auto) 0 % (0.0-7.0); Hematocrit 32.8 % (40.1-51.0); Hemoglobin 10.8 g/dL (13.7-17.5); Lymphocytes % (Auto) 6.5 % (15.5-49.0); Mean Cell Volume 90.4 fL (80.0-100.0); Mean Corpuscular HGB Conc 32.9 g/dL (31.0-36.0); Monocytes # (Auto) 0.42 K/mcL (0.10-0.90); Monocytes % (Auto) 6.8 % (1.0-12.0); Neutrophils % (Auto) 86.5 % (38.0-78.0); Platelet Count 261 K/mcL (140-440); RBC 3.63 M/mcL (4.63-6.08); Red Cell Distribution Width 13.1 % (11.5-14.5); WBC 6.2 K/mcL (4.5-11.0)
[2022-03-09] MEDS: OMEPRAZOLE 20 MG CAPSULE PO SCH (07:04)
[2022-03-09] MEDS: ceFAZolin 1 GM VIAL IV SCH (07:04)
[2022-03-09 07:13] LABS: ALT/SGPT 89 U/L (<40); AST/SGOT 87 U/L (<40); Albumin 2.6 gm/dL (3.2-5.2); Albumin/Globulin Ratio 1.1 (1.0-2.3); Alkaline Phosphatase 210 U/L (39-117); Bilirubin,Direct 0.3 mg/dL (<0.3); Bilirubin,Total 0.5 mg/dL (0.1-1.0); Blood Urea Nitrogen 22 mg/dL (8-23); Calcium 8.1 mg/dL (8.6-10.4); Carbon Dioxide 26 mmol/L (22-30); Chloride 96 mmol/L (96-108); Globulin 2.4 gm/dL (2.2-3.7); Glomerular Filtration Rate 83; Glucose 230 mg/dL (70-105); Lactate Dehydrogenase 279 U/L (135-225); Triglycerides 188 mg/dL (<150); Uric Acid 4.6 mg/dL (2.5-8.0)
[2022-03-09] MEDS: METHOCARBAMOL 750 MG TABLET PO PRN ×2 (07:53→16:50)
[2022-03-09] MEDS: ACETAMINOPHEN 325 MG TABLET PO PRN ×2 (07:53→16:49)
[2022-03-09] MEDS: cefTRIAXone 2 GM in DEXTROSE 5% IN WATER 50 ML IV SCH (08:41)
[2022-03-09] MEDS: DOCUSATE SODIUM 100 MG CAPSULE PO SCH ×2 (08:42→20:38)
[2022-03-09] MEDS: MULTIVIT,THER IRON,CA,FA & MIN 1 TABLET PO SCH (08:42)
[2022-03-09] MEDS: ASPIRIN 81 MG TAB.CHEW CHEWED SCH ×2 (08:42→20:38)
[2022-03-09] MEDS: LISINOPRIL 20 MG TABLET PO SCH (08:42)
[2022-03-09] MEDS ORDERED: ATORVASTATIN 40 MG TABLET PO SCH (09:00)
--- NOTE | 2022-03-09 09:23 | Internal Med Progress Note ---
SUBJECTIVE Subjective Patient information: Note initiated : 03/09/22 at 9:16 am Service Date, if different from initiated Date: [] Patient: Lita Topete 77 y/o M admitted on 03/07/22 for Hip Fracture. Chief Complaint: [] Interval history: Mr. Topete is a 77 year old M with a history of HTN/sleep apnea/PVD/HLD who presented to [place] ER last night after he fell in the bathroom. Patient apparently has problems with incontinence and dribbling and was trying to get back from the hospital and missed the door handle and subsequently landed on the floor sustaining injury to the right lower extremity. He was down on the floor where his discovered him and got him to the ER. Initial work-up was consistent with right hip fracture periprosthetic area. Orthopedics Dr. Hall was consulted and recommended transfer to [facility] for further evaluation. Additionally chest imaging consistent with right-sided pneumonia. Patient was started on Rocephin/crystalloid/pain medications. After brief evaluation the ER hospital service was consulted for admission to facilitate orthopedic intervention/management of pneumonia. Pain in good control, white count 5.8, sodium 133, 03/08 patient overnight stable, currently n.p.o., surgery at 2 PM, continuing antibiotics. Denies fever chills, currently on room air. Stable hemodynamics. No additional concerns expressed with nursing staff. Will review postop. 03/09 Patient had ORIF of the hip yesterday. No overnight acute events. Glucose elevated today we will check A1c. Transaminitis noted on admission and persistent. We will check liver ultrasound. Bilirubin okay. Continue antibiotics for pneumonia. Review of Systems: denies headache/fever/chills/nausea/vomiting/chest or abdominal pain/cough/dyspnea/diarrhea. Otherwise see above. Constitutional Vitals: Vital Signs Temp Pulse Resp BP Pulse Ox 97.8 F 85 20 129/81 95 03/09/22 07:42 03/09/22 07:42 03/09/22 07:42 03/09/22 07:42 03/09/22 07:42 Period Temp Pulse Resp BP Sys/Chavez Pulse Ox Last 24 Hr 97 F-98.8 F 75-113 14-20 109-148/59-104 86-100 Intake and Output 03/08/22 03/09/22 03/09/22 21:59 05:59 13:59 Intake Total 2450 1078 1480 Output Total 300 700 Balance 2150 378 1480 Weight 105.097 kg Intake & Output: Intake & Output 03/08/22 03/09/22 03/09/22 21:59 05:59 13:59 Intake Total 2450 1078 1480 Output Total 300 700 Balance 2150 378 1480 Weight 105.097 kg Intake: IV 1991 190 8588 Lactated Ringers 1,000 ml @ 100 3514 053 8602 mls/hr IV .Q10H [facility] Rx#: [id number] Ancef 2 gm In Dextrose 5% in 50 Water 50 ml @ 100 mls/hr IV PREOP [facility] Rx#:[id number] Oral 600 480 IV - Manual Only 1400 Output: Urine Catheter Amount 700 Estimated Blood Loss 300 Other: Meal Breakfast Percent of Meal Consumed 100% Feeding Ability Independent Urine Appearance Clear Sediment Uretheral (Reyna) Clear Urine Color Dark Yellow Dark Yellow Uretheral (Reyna) Bright Yellow Light Leena # Bowel Movements 0 Exam: General: Alert, Awake, No acute Distress, obese Eyes/N/T: EOMI, Head/Neck: neck supple, CV: RRR, No murmurs, Pulm: Clear b/l, no wheezing/rhonchi/rales Abd: soft, nontender, +BS x4 Ext: no clubbing/cyanosis/edema Neuro: Alert, no focal deficits, moves all extremities, Skin: warm/dry OBJ DATA Labs CBC & Chem 7: 03/09/22 05:36 03/09/22 05:36 Labs: Abnormal Lab Results 03/09/22 03/09/22 03/08/22 05:36 05:36 05:35 RBC 3.63 L Hgb 10.8 L Hct 32.8 L MPV 11.0 H Neut % (Auto) 86.5 H Lymph % (Auto) 6.5 L [place] % (Auto) Lymph # (Auto) 0.40 L Sodium 132 L Glucose 230 H 127 H Calcium 8.1 L 8.1 L Magnesium 2.6 H Direct Bilirubin 0.3 H 0.5 H GGT 219 H 272 H AST 87 H 79 H ALT 89 H 113 H Alkaline Phosphatase 210 H 235 H Lactate Dehydrogenase 279 H 238 H Total Protein 5.0 L 5.2 L Albumin 2.6 L 2.7 L Triglycerides 188 H Procalcitonin 03/08/22 03/07/22 05:35 08:09 RBC 3.76 L Hgb 11.3 L Hct 33.8 L MPV 10.8 H Neut % (Auto) Lymph % (Auto) 11.1 L [place] % (Auto) 13.0 H Lymph # (Auto) 0.64 L Sodium Glucose Calcium Magnesium Direct Bilirubin GGT AST ALT Alkaline Phosphatase Lactate Dehydrogenase Total Protein Albumin Triglycerides Procalcitonin 0.50 H Meds: Medications Acetaminophen (Acetaminophen 325 Mg Tablet) 650 mg PO Q4-6HP PRN; Protocol PRN Reason: Per Pain Protocol/Fever > 101 Last Admin: 03/09/22 07:53 Dose: 650 mg Documented by: Hydrocodone Bitart/Acetaminophen (Hydrocodone/Apap 10/325mg Tablet) 1 - 2 tab PO Q4HP PRN; Protocol PRN Reason: Per Pain Protocol Aspirin (Aspirin 81 Mg Tab.Chew) 81 mg CHEWED BID [facility] Last Admin: 03/09/22 08:42 Dose: 81 mg Documented by: Atorvastatin Calcium (Atorvastatin 40 Mg Tablet) 40 mg PO QDAY [facility] Last Admin: 03/09/22 08:42 Dose: 40 mg Documented by: Bisacodyl (Bisacodyl 10 Mg Supp.Rect) 10 mg [place] Q2-3DAYS PRN PRN Reason: Constipation Docusate Sodium (Docusate Sodium 100 Mg Capsule) 100 mg PO BID [facility] Last Admin: 03/09/22 08:42 Dose: 100 mg Documented by: Hydromorphone HCl (Hydromorphone 0.5 Mg/0.5 Ml Syringe) 0.5 mg IV Q2HP PRN; Protocol PRN Reason: Per Pain Protocol Last Admin: 03/07/22 23:35 Dose: 0.5 mg Documented by: Azithromycin 500 mg/ Dextrose 250 mls @ 250 mls/hr IV Q24H [facility]; Protocol Stop: 03/09/22 10:59 Last Infusion: 03/08/22 12:40 Dose: Infused Documented by: Potassium Chloride 40 meq/ (Dextrose) 520 mls @ 130 mls/hr IV UD PRN PRN Reason: K+ = or < 3.5 Acetaminophen (Ofirmev) 650 mg in 65 mls @ 130 mls/hr IV Q6HP PRN; Protocol PRN Reason: Per Pain Protocol/Fever > 101 Magnesium Sulfate (Magnesium Sulfate) 2 gm in 50 mls @ 50 mls/hr IV UD PRN PRN Reason: MG = or < 1.7 Ceftriaxone Sodium 2 gm/ (Dextrose) 50 mls @ 100 mls/hr IV Q24H [facility]; Protocol Last Admin: 03/09/22 08:41 Dose: 100 mls/hr Documented by: Iron Carb/Multivit/[place]/Folic Acid (Multivit,Ther Iron,Ca,Fa & Min 1 Tablet) 1 tab PO DAILY [facility] Last Admin: 03/09/22 08:42 Dose: 1 tab Documented by: Lisinopril (Lisinopril 20 Mg Tablet) 20 mg PO QDAY [facility] Last Admin: 03/09/22 08:42 Dose: 20 mg Documented by: Magnesium Hydroxide (Magnesium Hydroxide 30 Ml Oral.Susp) 30 ml PO BIDP PRN PRN Reason: Constipation Melatonin (Melatonin 3 Mg Tablet) 3 mg PO HSP PRN PRN Reason: Insomnia Methocarbamol (Methocarbamol 750 Mg Tablet) 750 mg PO Q6HP PRN PRN Reason: Muscle Spasm Last Admin: 03/09/22 07:53 Dose: 750 mg Documented by: Naloxone HCl (Naloxone Hcl 0.4 Mg/Ml Vial) 0.1 mg IV Q2MIN PRN PRN Reason: Opiate Reversal Nitroglycerin (Nitroglycerin 0.4 Mg Tab.Subl) 0.4 mg SL Q5M PRN PRN Reason: Chest Pain Omeprazole (Omeprazole 20 Mg Capsule) 20 mg PO ACB [facility] Last Admin: 03/09/22 07:04 Dose: 20 mg Documented by: Ondansetron HCl (Ondansetron 4 Mg Odt Tablet) 4 mg SL Q4-6HP PRN; Protocol PRN Reason: Nausea And Vomiting Ondansetron HCl (Ondansetron 4 Mg/2 Ml Vial) 4 mg IV Q4-6HP PRN; Protocol PRN Reason: Nausea And Vomiting Oxycodone HCl (Oxycodone Hcl 5 Mg Tablet) 0 mg PO Q4HP PRN; Protocol PRN Reason: Per Pain Protocol Last Admin: 03/09/22 03:43 Dose: 5 mg Documented by: Polyethylene Glycol (Polyethylene Glycol 3350 17 Gm Packet) 17 gm PO DAILYP PRN PRN Reason: Constipation Promethazine HCl (Promethazine 25 Mg/Ml Vial) 12.5 mg IM Q6HP PRN; Protocol PRN Reason: Nausea And Vomiting Senna/Docusate Sodium (Sennosides/Docusate Sodium 1 Tab Tablet) 1 tab PO HS [facility] Last Admin: 03/08/22 20:46 Dose: Not Given Documented by: Sodium Biphosphate/Sodium Phosphate (Fleets Adult Enema) 1 dose [place] Q3-4DAYS PRN PRN Reason: Constipation Sodium Chloride (0.9 % Sodium Chloride 10 Ml Syringe) 10 ml IV Q8 [facility] Last Admin: 03/09/22 07:05 Dose: 10 ml Documented by: Temazepam (Temazepam 15 Mg Capsule) 15 mg PO HSP PRN PRN Reason: Insomnia A/P Narrative A/P Narrative: A: *CAP: -clinically responding to empiric antibiotic coverage -sputum cultures negative so far *Right Hip FX: s/p CLAUDIA (03/08) *Preop risk evaluation-based on RCRI [place] [employer] stratification patient would be a moderate-high risk category -in the setting of advanced age/sleep apnea/functional metabolic equivalent of 1 at baseline -However there are no modifiable risk factors other than pneumonia which is mild *Mild hypoxia: 2/2 pneumonia. Resolved now on room air *CAD w/stent: on aspirin/statin and managed by Dr. Gill cardiology *RILEY w/CPAP at night: *HTN/HLD:GERD continue PPI *GERD: *Transaminitis: Unknown etiology Plan: -Ortho for ORIF, pain management -Postop PT/nutrition support -f/u cxr in AM -Continue antibiotic coverage -elevated BG, check a1c -liver u/s -restart home ACEI -cont home statin/ASA -ppx: ASA bid per Ortho / home ppi Plan of Treatment: cont medical management per hospitalist. Mobilize with PT discharge to SNF versus Swing bed 1-2 days. Time Spent With Patient Time: Total time spent is greater than 50% in coordination of care (as documented) at patient's floor/unit and/or counseling patient: Total time spent with greater than 50% in coordination of care (as documented) at patient's floor/unit and/or counseling patient:: 25 - 35 minutes QUALITY VTE Deep Vein Thrombosis/Pulmonary Embolism Present on Admission: No
--- NOTE | 2022-03-09 09:24 | Orthopedic Progress Note ---
SUBJECTIVE Subjective Patient information: Note initiated : 03/09/22 at 9:21 am Service Date, if different from initiated Date: [] Patient: Lita Topete 77 y/o M admitted on 03/07/22 for Hip Fracture. Chief Complaint: No c/o. Principal diagnosis: R hip periprosethetic fx Constitutional Vitals: Vital Signs Temp Pulse Resp BP Pulse Ox 97.8 F 85 20 129/81 95 03/09/22 07:42 03/09/22 07:42 03/09/22 07:42 03/09/22 07:42 03/09/22 07:42 Period Temp Pulse Resp BP Sys/Chavez Pulse Ox Last 24 Hr 97 F-98.8 F 75-113 14-20 109-148/59-104 86-100 Intake and Output 03/08/22 03/09/22 03/09/22 21:59 05:59 13:59 Intake Total 2450 1078 1480 Output Total 300 700 Balance 2150 378 1480 Weight 231 lb 11.2 oz Intake & Output: Intake & Output 03/08/22 03/09/22 03/09/22 21:59 05:59 13:59 Intake Total 2450 1078 1480 Output Total 300 700 Balance 2150 378 1480 Weight 231 lb 11.2 oz Intake: IV 0051 006 0168 Lactated Ringers 1,000 ml @ 100 3555 305 3924 mls/hr IV .Q10H [facility] Rx#: [id number] Ancef 2 gm In Dextrose 5% in 50 Water 50 ml @ 100 mls/hr IV PREOP [facility] Rx#:[id number] Oral 600 480 IV - Manual Only 1400 Output: Urine Catheter Amount 700 Estimated Blood Loss 300 Other: Meal Breakfast Percent of Meal Consumed 100% Feeding Ability Independent Urine Appearance Clear Sediment Uretheral (Reyna) Clear Urine Color Dark Yellow Dark Yellow Uretheral (Reyna) Bright Yellow Light Leena # Bowel Movements 0 Skin Skin exam: Present normal color and warm OBJ DATA Labs CBC & Chem 7: 03/09/22 05:36 03/09/22 05:36 Labs: Abnormal Lab Results 03/09/22 03/09/22 03/08/22 05:36 05:36 05:35 RBC 3.63 L Hgb 10.8 L Hct 32.8 L MPV 11.0 H Neut % (Auto) 86.5 H Lymph % (Auto) 6.5 L [place] % (Auto) Lymph # (Auto) 0.40 L Sodium 132 L Glucose 230 H 127 H Calcium 8.1 L 8.1 L Magnesium 2.6 H Direct Bilirubin 0.3 H 0.5 H GGT 219 H 272 H AST 87 H 79 H ALT 89 H 113 H Alkaline Phosphatase 210 H 235 H Lactate Dehydrogenase 279 H 238 H Total Protein 5.0 L 5.2 L Albumin 2.6 L 2.7 L Triglycerides 188 H Procalcitonin 03/08/22 03/07/22 05:35 08:09 RBC 3.76 L Hgb 11.3 L Hct 33.8 L MPV 10.8 H Neut % (Auto) Lymph % (Auto) 11.1 L Keith % (Auto) 13.0 H Lymph # (Auto) 0.64 L Sodium Glucose Calcium Magnesium Direct Bilirubin GGT AST ALT Alkaline Phosphatase Lactate Dehydrogenase Total Protein Albumin Triglycerides Procalcitonin 0.50 H Bandages c/d/i NVI-distal Meds: Medications Acetaminophen (Acetaminophen 325 Mg Tablet) 650 mg PO Q4-6HP PRN; Protocol PRN Reason: Per Pain Protocol/Fever > 101 Last Admin: 03/09/22 07:53 Dose: 650 mg Documented by: Hydrocodone Bitart/Acetaminophen (Hydrocodone/Apap 10/325mg Tablet) 1 - 2 tab PO Q4HP PRN; Protocol PRN Reason: Per Pain Protocol Aspirin (Aspirin 81 Mg Tab.Chew) 81 mg CHEWED BID [facility] Last Admin: 03/09/22 08:42 Dose: 81 mg Documented by: Atorvastatin Calcium (Atorvastatin 40 Mg Tablet) 40 mg PO QDAY [facility] Last Admin: 03/09/22 08:42 Dose: 40 mg Documented by: Bisacodyl (Bisacodyl 10 Mg Supp.Rect) 10 mg AL Q2-3DAYS PRN PRN Reason: Constipation Docusate Sodium (Docusate Sodium 100 Mg Capsule) 100 mg PO BID [facility] Last Admin: 03/09/22 08:42 Dose: 100 mg Documented by: Hydromorphone HCl (Hydromorphone 0.5 Mg/0.5 Ml Syringe) 0.5 mg IV Q2HP PRN; Protocol PRN Reason: Per Pain Protocol Last Admin: 03/07/22 23:35 Dose: 0.5 mg Documented by: Azithromycin 500 mg/ Dextrose 250 mls @ 250 mls/hr IV Q24H [facility]; Protocol Stop: 03/09/22 10:59 Last Infusion: 03/08/22 12:40 Dose: Infused Documented by: Potassium Chloride 40 meq/ (Dextrose) 520 mls @ 130 mls/hr IV UD PRN PRN Reason: K+ = or < 3.5 Acetaminophen (Ofirmev) 650 mg in 65 mls @ 130 mls/hr IV Q6HP PRN; Protocol PRN Reason: Per Pain Protocol/Fever > 101 Magnesium Sulfate (Magnesium Sulfate) 2 gm in 50 mls @ 50 mls/hr IV UD PRN PRN Reason: MG = or < 1.7 Ceftriaxone Sodium 2 gm/ (Dextrose) 50 mls @ 100 mls/hr IV Q24H [facility]; Protocol Last Admin: 03/09/22 08:41 Dose: 100 mls/hr Documented by: Iron Carb/Multivit/[place]/Folic Acid (Multivit,Ther Iron,Ca,Fa & Min 1 Tablet) 1 tab PO DAILY [facility] Last Admin: 03/09/22 08:42 Dose: 1 tab Documented by: Lisinopril (Lisinopril 20 Mg Tablet) 20 mg PO QDAY [facility] Last Admin: 03/09/22 08:42 Dose: 20 mg Documented by: Magnesium Hydroxide (Magnesium Hydroxide 30 Ml Oral.Susp) 30 ml PO BIDP PRN PRN Reason: Constipation Melatonin (Melatonin 3 Mg Tablet) 3 mg PO HSP PRN PRN Reason: Insomnia Methocarbamol (Methocarbamol 750 Mg Tablet) 750 mg PO Q6HP PRN PRN Reason: Muscle Spasm Last Admin: 03/09/22 07:53 Dose: 750 mg Documented by: Naloxone HCl (Naloxone Hcl 0.4 Mg/Ml Vial) 0.1 mg IV Q2MIN PRN PRN Reason: Opiate Reversal Nitroglycerin (Nitroglycerin 0.4 Mg Tab.Subl) 0.4 mg SL Q5M PRN PRN Reason: Chest Pain Omeprazole (Omeprazole 20 Mg Capsule) 20 mg PO ACB [facility] Last Admin: 03/09/22 07:04 Dose: 20 mg Documented by: Ondansetron HCl (Ondansetron 4 Mg Odt Tablet) 4 mg SL Q4-6HP PRN; Protocol PRN Reason: Nausea And Vomiting Ondansetron HCl (Ondansetron 4 Mg/2 Ml Vial) 4 mg IV Q4-6HP PRN; Protocol PRN Reason: Nausea And Vomiting Oxycodone HCl (Oxycodone Hcl 5 Mg Tablet) 0 mg PO Q4HP PRN; Protocol PRN Reason: Per Pain Protocol Last Admin: 03/09/22 03:43 Dose: 5 mg Documented by: Polyethylene Glycol (Polyethylene Glycol 3350 17 Gm Packet) 17 gm PO DAILYP PRN PRN Reason: Constipation Promethazine HCl (Promethazine 25 Mg/Ml Vial) 12.5 mg IM Q6HP PRN; Protocol PRN Reason: Nausea And Vomiting Senna/Docusate Sodium (Sennosides/Docusate Sodium 1 Tab Tablet) 1 tab PO HS [facility] Last Admin: 03/08/22 20:46 Dose: Not Given Documented by: Sodium Biphosphate/Sodium Phosphate (Fleets Adult Enema) 1 dose AL Q3-4DAYS PRN PRN Reason: Constipation Sodium Chloride (0.9 % Sodium Chloride 10 Ml Syringe) 10 ml IV Q8 [facility] Last Admin: 03/09/22 07:05 Dose: 10 ml Documented by: Temazepam (Temazepam 15 Mg Capsule) 15 mg PO HSP PRN PRN Reason: Insomnia Impressions Impression: R hip periprosethic fx-stable A/P Narrative A/P Narrative: s/p ORIF periprosethetic fx Plan of Treatment: cont medical management per hospitalist. Mobilize with PT discharge to SNF versus Swing bed 1-2 days. Time Spent With Patient Time: Total time spent is greater than 50% in coordination of care (as documented) at patient's floor/unit and/or counseling patient: Total time spent with greater than 50% in coordination of care (as documented) at patient's floor/unit and/or counseling patient:: less than 15 minutes
[2022-03-09] MEDS: AZITHROMYCIN 500 MG in DEXTROSE 5% IN WATER 250 ML IV SCH (09:32)
[2022-03-09 10:09] LABS: Hemoglobin A1C 5.7 % Hgb (4.0-6.0)
--- NOTE | 2022-03-09 15:47 | Ultrasound Report ---
History: Elevated serum transaminase levels FINDINGS: The liver is normal in size and homogeneous. There is no evidence of a mass or infiltration. Doppler shows normal blood flow in the hepatic and portal veins. No ascites is present. Gallbladder is relatively small. The wall measures up to 3 mm in thickness. Patient was nontender while scanning over the gallbladder. The patient ate breakfast prior to the exam which may be causing physiologic contraction of the gallbladder. The common bile duct measures up to 6 mm in greatest diameter, which is within normal limits. The pancreas is mostly obscured by overlying bowel gas. There is no apparent pancreatic mass or pancreatitis. IMPRESSION: Normal liver Partially contracted gallbladder which may be due to the presence of food in the stomach Interpreted and Authenticated by: Dilan Rdz 03/09/22
[2022-03-09] MEDS: MAGNESIUM HYDROXIDE 30 ML ORAL.SUSP PO PRN (16:49)
--- NOTE | 2022-03-09 16:53 | Discharge Summary ---
Discharge Provider Provider Patient information: Note initiated : 03/09/22 at 4:49 pm Service Date, if different from initiated Date: [] Patient: Lita Topete 77 y/o M admitted on 03/07/22 for Hip Fracture. Chief Complaint: [] Date of admission: 03/07/22 05:19 Discharge date: 03/10/22 Primary care physician: Ethan Melendez Consults: 03/07/22 Consult to Physician [CONS] Stat Comment: Consulting Provider: Alonzo Camacho Reason For Exam: Physician to Consult Consult to Physician [CONS] Stat Comment: Consulting Provider: Jaciel Sibley Reason For Exam: Physician to Consult Discharge Meds Discharge Medications Home Medications acetaminophen 500 mg tablet 1,000 mg PO Q6H PRN 01/17/22 [History Confirmed 03/07/22 Last Taken 03/06/22 05:00] ascorbic acid (vitamin C) 1,000 mg tablet (Vitamin C) 1 g PO QAM 01/17/22 [History Confirmed 03/07/22 Last Taken 03/06/22 05:00] ferrous sulfate 325 mg (65 mg iron) tablet (iron) 325 mg PO QDAY 01/17/22 [History Confirmed 03/07/22 Last Taken Unknown] lisinopril 20 mg tablet 20 mg PO QDAY 01/17/22 [History Confirmed 03/07/22 Last Taken 03/06/22 05:00] multivitamin 1 tab PO QDAY 01/17/22 [History Confirmed 03/07/22 Last Taken 03/06/22 05:00] naproxen sodium 220 mg tablet (Aleve) 220 mg PO BID PRN 01/17/22 [History Confirmed 03/07/22 Last Taken Unknown] nitroglycerin 0.4 mg sublingual tablet 0.4 mg SUBLINGUAL Q5M PRN 01/17/22 [History Confirmed 03/07/22 Last Taken Unknown] omega 0-bjq-qvm-fish oil 1,000 mg (120 mg-180 mg) capsule (Fish Oil) 1 cap PO QDAY 01/17/22 [History Confirmed 03/07/22 Last Taken 03/06/22 05:00] omeprazole 20 mg tablet,delayed release 20 mg PO QDAY 01/17/22 [History Confirmed 03/07/22 Last Taken 03/06/22 05:00] aspirin 81 mg tablet,delayed release (Ecotrin Low Strength) 81 mg PO BID #60 tab 01/21/22 [Rx Confirmed 03/07/22 Last Taken 03/06/22 05:00] docusate sodium 100 mg capsule 100 mg PO BID #60 cap 01/21/22 [Rx Confirmed 03/07/22 Last Taken Unknown] hydrocodone 10 mg-acetaminophen 325 mg tablet 1 - 2 tab PO Q4H PRN #75 tab 01/21/22 [Rx Confirmed 03/07/22 Last Taken Unknown] hydrocodone 10 mg-acetaminophen 325 mg tablet 1 tab PO Q4HP PRN #20 tab 03/09/22 [Rx Last Taken Unknown] tamsulosin 0.4 mg capsule 0.4 mg PO QHS #30 cap 03/10/22 [Rx Last Taken Unknown] COURSE Hospital Course Hospital course: Interval history: Mr. Topete is a 77 year old M with a history of HTN/sleep apnea/PVD/HLD who presented to [place] ER last night after he fell in the bathroom. Patient apparently has problems with incontinence and dribbling and was trying to get back from the hospital and missed the door handle and subsequently landed on the floor sustaining injury to the right lower extremity. He was down on the floor where his discovered him and got him to the ER. Initial work-up was consistent with right hip fracture periprosthetic area. Orthopedics Dr. Hall was consulted and recommended transfer to [facility] for further evaluation. Additionally chest imaging consistent with right-sided pneumonia. Patient was started on Rocephin/crystalloid/pain medications. After brief evaluation the ER hospital service was consulted for admission to facilitate orthopedic intervention/management of pneumonia. Pain in good control, white count 5.8, sodium 133, 03/08 patient overnight stable, currently n.p.o., surgery at 2 PM, continuing antibiotics. Denies fever chills, currently on room air. Stable hemodynamics. No additional concerns expressed with nursing staff. Will review postop. 03/09 Patient had ORIF of the hip yesterday. No overnight acute events. Glucose elevated today we will check A1c. Transaminitis noted on admission and persistent. We will check liver ultrasound. Bilirubin okay. Continue antibiotics for pneumonia. A: *CAP: -sputum cultures negative so far *Mild hypoxia: 2/2 pneumonia. Resolved now on room air *Right Hip FX: s/p CLAUDIA (03/08) *CAD w/stent: on aspirin/statin and managed by Dr. Gill cardiology *RILEY w/CPAP at night: *HTN/HLD:GERD continue PPI *GERD: *Transaminitis: Unknown etiology. liver u/s unremarkable *BPH symptoms with UR Plan: -f/u with Ortho -finish antibiotic -hold statin until f/u LFT's outpt with PCP -flomax started -ppx: ASA bid per Ortho Discharge diagnosis: Pneumonia with mild hypoxia right hip fracture transaminitis Secondary discharge diagnosis: CAD obstructive sleep apnea hypertension GERD hyperlipidemia Time Spent with Patient Time attestation: Total time spent providing and/or coordinating discharge services: Time spent: Greater than 30 minutes EXAM Constitutional Vitals: Temp Pulse Resp BP Pulse Ox 97.9 F 83 20 124/76 96 03/09/22 15:47 03/09/22 15:47 03/09/22 15:47 03/09/22 15:47 03/09/22 15:47 Discharge Data Data Completed and Pending Labs on day of discharge: Labs from last 24 hours 03/09/22 03/09/22 03/09/22 05:36 05:36 05:30 WBC 6.2 RBC 3.63 L Hgb 10.8 L Hct 32.8 L MCV 90.4 MCH 29.8 MCHC 32.9 RDW 13.1 Plt Count 261 MPV 11.0 H Neut % (Auto) 86.5 H Lymph % (Auto) 6.5 L [place] % (Auto) 6.8 Eos % (Auto) 0 Baso % (Auto) 0.2 Lymph # (Auto) 0.40 L [place] # (Auto) 0.42 Eos # (Auto) 0 Baso # (Auto) 0.01 Absolute Neutrophils 5.37 Sodium 132 L Potassium 4.5 Chloride 96 Carbon Dioxide 26 Anion Gap 10.0 BUN 22 Creatinine 0.9 GFR Calculation 83 Glucose 230 H Hemoglobin A1c 5.7 Estim Average Glucose 117 Uric Acid 4.6 Calcium 8.1 L Phosphorus 4.0 Magnesium 2.6 H Total Bilirubin 0.5 Direct Bilirubin 0.3 H GGT 219 H AST 87 H ALT 89 H Alkaline Phosphatase 210 H Lactate Dehydrogenase 279 H Total Protein 5.0 L Albumin 2.6 L Globulin 2.4 Albumin/Globulin Ratio 1.1 Triglycerides 188 H Discharge Plan Patient/Caregiver Discharge Instructions Activity: increase activity as tolerated Diet: Regular Diet Prescriptions: New hydrocodone-acetaminophen 10-325 mg Tablet 1 tab PO Q4HP PRN (Reason: Per Pain Protocol) Qty: 20 0RF tamsulosin 0.4 mg capsule 0.4 mg PO QHS Qty: 30 0RF Continued multivitamin Tablet 1 tab PO QDAY 0RF ascorbic acid (vitamin C) [Vitamin C] 1,000 mg Tablet 1 g PO QAM 0RF lisinopril 20 mg Tablet 20 mg PO QDAY 0RF acetaminophen 500 mg Tablet 1,000 mg PO Q6H PRN (Reason: Pain) 0RF ferrous sulfate [iron] 325 mg (65 mg iron) Tablet 325 mg PO QDAY 0RF Rx Instructions: Patient states taking one BID made him sick, regardless of taking with food. naproxen sodium [Aleve] 220 mg Tablet 220 mg PO BID PRN (Reason: Pain) 0RF omeprazole 20 mg Tablet,Delayed Release (Dr/Ec) 20 mg PO QDAY 0RF omega 3-wpt-bpi-fish oil [Fish Oil] 1,000 mg (120 mg-180 mg) Capsule 1 cap PO QDAY 0RF nitroglycerin 0.4 mg Tablet, Sublingual 0.4 mg SUBLINGUAL Q5M PRN (Reason: Chest Pain) 0RF Rx Instructions: do not exceed 3 doses per episode hydrocodone-acetaminophen 10-325 mg tablet 1 - 2 tab PO Q4H PRN (Reason: pain) Qty: 75 0RF aspirin [Ecotrin Low Strength] 81 mg tablet,delayed release (DR/EC) 81 mg PO BID Qty: 60 0RF docusate sodium 100 mg capsule 100 mg PO BID Qty: 60 0RF Discontinued atorvastatin 40 mg Tablet 40 mg PO QDAY 0RF Other Ambulatory Orders: Hepatic Panel (Routine) Timeframe: 3 Days Facility: [facility] - Location: Laboratory Ordered By: Bridger Ferrellnathalie Follow Up Plan Follow up with: Jaciel Sibley MD [Physician] - Ethan Melendez MD [Primary Care Provider] - Patient Disposition: Home, Self-Care Plan of Treatment: cont medical management per hospitalist. Mobilize with PT discharge to SNF versus Swing bed 1-2 days. Prognosis: Fair Rehab Potential: Good I certify that the patient requires SNF services: No Overall status at discharge: patient is progressing back to baseline Discharge Orders: Discharge Order (Routine); Ordered 03/10/22 Ordered By: Bridger Reed [facility] VTE Deep Vein Thrombosis/Pulmonary Embolism Present on Admission: No
[2022-03-09] MEDS: SENNOSIDES/DOCUSATE SODIUM 1 TAB TABLET PO SCH (20:38)
[2022-03-09] MEDS: HYDROcodone/APAP 10/325MG TABLET PO PRN (20:38)
[2022-03-10] MEDS: HYDROcodone/APAP 10/325MG TABLET PO PRN ×3 (01:13→12:10)
[2022-03-10] MEDS: METHOCARBAMOL 750 MG TABLET PO PRN ×2 (01:13→07:24)
[2022-03-10] MEDS: 0.9 % SODIUM CHLORIDE 10 ML SYRINGE IV SCH ×2 (05:22→09:13)
[2022-03-10] MEDS: ACETAMINOPHEN 325 MG TABLET PO PRN (07:23)
[2022-03-10] MEDS: OMEPRAZOLE 20 MG CAPSULE PO SCH (07:24)
[2022-03-10] MEDS: MAGNESIUM HYDROXIDE 30 ML ORAL.SUSP PO PRN (07:26)
[2022-03-10 08:21] LABS: ALT/SGPT 100 U/L (<40); AST/SGOT 104 U/L (<40); Albumin 2.7 gm/dL (3.2-5.2); Alkaline Phosphatase 206 U/L (39-117); Bilirubin,Direct < 0.2 mg/dL (0-0.3); Bilirubin,Total 0.4 mg/dL (0.1-1.0); Blood Urea Nitrogen 23 mg/dL (8-23); Calcium 8.1 mg/dL (8.6-10.4); Carbon Dioxide 28 mmol/L (22-30); Chloride 98 mmol/L (96-108); Globulin 2.7 gm/dL (2.2-3.7); Glomerular Filtration Rate 87; Glucose 162 mg/dL (70-105); Lactate Dehydrogenase 305 U/L (135-225); Phosphorous 2.8 mg/dL (2.5-4.5); Triglycerides 283 mg/dL (<150); Uric Acid 4.8 mg/dL (2.5-8.0)
[2022-03-10] MEDS: cefTRIAXone 2 GM in DEXTROSE 5% IN WATER 50 ML IV SCH (09:12)
[2022-03-10] MEDS: MULTIVIT,THER IRON,CA,FA & MIN 1 TABLET PO SCH (09:12)
[2022-03-10] MEDS: ASPIRIN 81 MG TAB.CHEW CHEWED SCH (09:12)
[2022-03-10] MEDS: DOCUSATE SODIUM 100 MG CAPSULE PO SCH (09:12)
[2022-03-10] MEDS: LISINOPRIL 20 MG TABLET PO SCH (09:12)
--- NOTE | 2022-03-10 09:31 | XRay Report ---
HISTORY: Follow-up pneumonia, recent hip fracture repair FINDINGS: There is a moderate-sized alveolar infiltrate in the right middle lobe. This has improved since 03/08/22. There is a tiny right-sided pleural effusion. The left lung is clear. Heart size is within upper limits of normal. There is no pulmonary vascular congestion. 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 IMPRESSION: Improving pneumonia in the right middle lobe Interpreted and Authenticated by: Dilan Rdz 03/10/22
[2022-03-10] MEDS ORDERED: TAMSULOSIN 0.4 MG CAPSULE PO ONE (10:43)
[2022-03-10] MEDS ORDERED: LACTULOSE 20 GM/30 ML ORAL.SOL PO ONE (10:46)
--- NOTE | 2022-03-10 11:02 | Orthopedic Progress Note ---
SUBJECTIVE Subjective Patient information: Note initiated : 03/10/22 at 11:00 am Service Date, if different from initiated Date: [] Patient: Lita Topete 77 y/o M admitted on 03/07/22 for Hip Fracture. Chief Complaint: c/o of constipation Principal diagnosis: R hip periprosethetic fx Constitutional Vitals: Vital Signs Temp Pulse Resp BP Pulse Ox 97.3 F 87 16 120/76 93 03/10/22 06:45 03/10/22 06:45 03/10/22 06:45 03/10/22 06:45 03/10/22 06:45 Period Temp Pulse Resp BP Sys/Chavez Pulse Ox Last 24 Hr 97.2 F-98 F 81-89 16-20 118-130/70-76 92-96 Intake and Output 03/09/22 03/10/22 03/10/22 21:59 05:59 13:59 Intake Total 400 50 Output Total 1000 700 Balance -1000 -300 50 Intake & Output: Intake & Output 03/09/22 03/10/22 03/10/22 21:59 05:59 13:59 Intake Total 400 50 Output Total 1000 700 Balance -1000 -300 50 Intake: IV 50 Rocephin 2 gm In Dextrose 5% in 50 Water 50 ml @ 100 mls/hr IV Q24H [facility] Rx#:[id number] Oral 400 Output: Urine Catheter Amount 1000 700 Other: Meal Lunch Percent of Meal Consumed 100% Feeding Ability Independent Urine Appearance Clear Clear Uretheral (Reyna) Clear Clear Urine Color Bright Yellow Dark Yellow Uretheral (Reyna) Bright Yellow Light Leena # Bowel Movements 0 Skin Skin exam: Present dry, intact and warm OBJ DATA Labs CBC & Chem 7: 03/09/22 05:36 03/10/22 05:10 Labs: Abnormal Lab Results 03/10/22 03/10/22 03/09/22 05:10 05:10 05:36 RBC Hgb Hct MPV Neut % (Auto) Lymph % (Auto) [place] % (Auto) Lymph # (Auto) Sodium 132 L Glucose 162 H 230 H Calcium 8.1 L 8.1 L Magnesium 2.7 H 2.6 H Direct Bilirubin 0.3 H GGT 208 H 219 H AST 104 H 87 H ALT 100 H 89 H Alkaline Phosphatase 206 H 210 H Lactate Dehydrogenase 305 H 279 H Total Protein 5.4 L 5.0 L Albumin 2.7 L 2.6 L Triglycerides 283 H 188 H Procalcitonin 0.58 H 03/09/22 03/08/22 03/08/22 05:36 05:35 05:35 RBC 3.63 L 3.76 L Hgb 10.8 L 11.3 L Hct 32.8 L 33.8 L MPV 11.0 H 10.8 H Neut % (Auto) 86.5 H Lymph % (Auto) 6.5 L 11.1 L [place] % (Auto) 13.0 H Lymph # (Auto) 0.40 L 0.64 L Sodium Glucose 127 H Calcium 8.1 L Magnesium Direct Bilirubin 0.5 H GGT 272 H AST 79 H ALT 113 H Alkaline Phosphatase 235 H Lactate Dehydrogenase 238 H Total Protein 5.2 L Albumin 2.7 L Triglycerides Procalcitonin Meds: Medications Acetaminophen (Acetaminophen 325 Mg Tablet) 650 mg PO Q4-6HP PRN; Protocol PRN Reason: Per Pain Protocol/Fever > 101 Last Admin: 03/10/22 07:23 Dose: 650 mg Documented by: Hydrocodone Bitart/Acetaminophen (Hydrocodone/Apap 10/325mg Tablet) 1 - 2 tab PO Q4HP PRN; Protocol PRN Reason: Per Pain Protocol Last Admin: 03/10/22 05:24 Dose: 1 tab Documented by: Aspirin (Aspirin 81 Mg Tab.Chew) 81 mg CHEWED BID [facility] Last Admin: 03/10/22 09:12 Dose: 81 mg Documented by: Bisacodyl (Bisacodyl 10 Mg Supp.Rect) 10 mg MI Q2-3DAYS PRN PRN Reason: Constipation Docusate Sodium (Docusate Sodium 100 Mg Capsule) 100 mg PO BID [facility] Last Admin: 03/10/22 09:12 Dose: 100 mg Documented by: Hydromorphone HCl (Hydromorphone 0.5 Mg/0.5 Ml Syringe) 0.5 mg IV Q2HP PRN; Protocol PRN Reason: Per Pain Protocol Last Admin: 03/07/22 23:35 Dose: 0.5 mg Documented by: Potassium Chloride 40 meq/ (Dextrose) 520 mls @ 130 mls/hr IV UD PRN PRN Reason: K+ = or < 3.5 Acetaminophen (Ofirmev) 650 mg in 65 mls @ 130 mls/hr IV Q6HP PRN; Protocol PRN Reason: Per Pain Protocol/Fever > 101 Magnesium Sulfate (Magnesium Sulfate) 2 gm in 50 mls @ 50 mls/hr IV UD PRN PRN Reason: MG = or < 1.7 Ceftriaxone Sodium 2 gm/ (Dextrose) 50 mls @ 100 mls/hr IV Q24H [facility]; Protocol Last Infusion: 03/10/22 09:57 Dose: Infused Documented by: Iron Carb/Multivit/[employer]/Folic Acid (Multivit,Ther Iron,Ca,Fa & Min 1 Tablet) 1 tab PO DAILY [facility] Last Admin: 03/10/22 09:12 Dose: 1 tab Documented by: Lisinopril (Lisinopril 20 Mg Tablet) 20 mg PO QDAY [facility] Last Admin: 03/10/22 09:12 Dose: 20 mg Documented by: Magnesium Hydroxide (Magnesium Hydroxide 30 Ml Oral.Susp) 30 ml PO BIDP PRN PRN Reason: Constipation Last Admin: 03/10/22 07:26 Dose: 30 ml Documented by: Melatonin (Melatonin 3 Mg Tablet) 3 mg PO HSP PRN PRN Reason: Insomnia Last Admin: 03/10/22 01:14 Dose: 3 mg Documented by: Methocarbamol (Methocarbamol 750 Mg Tablet) 750 mg PO Q6HP PRN PRN Reason: Muscle Spasm Last Admin: 03/10/22 07:24 Dose: 750 mg Documented by: Naloxone HCl (Naloxone Hcl 0.4 Mg/Ml Vial) 0.1 mg IV Q2MIN PRN PRN Reason: Opiate Reversal Nitroglycerin (Nitroglycerin 0.4 Mg Tab.Subl) 0.4 mg SL Q5M PRN PRN Reason: Chest Pain Omeprazole (Omeprazole 20 Mg Capsule) 20 mg PO ACB [facility] Last Admin: 03/10/22 07:24 Dose: 20 mg Documented by: Ondansetron HCl (Ondansetron 4 Mg Odt Tablet) 4 mg SL Q4-6HP PRN; Protocol PRN Reason: Nausea And Vomiting Ondansetron HCl (Ondansetron 4 Mg/2 Ml Vial) 4 mg IV Q4-6HP PRN; Protocol PRN Reason: Nausea And Vomiting Oxycodone HCl (Oxycodone Hcl 5 Mg Tablet) 0 mg PO Q4HP PRN; Protocol PRN Reason: Per Pain Protocol Last Admin: 03/09/22 03:43 Dose: 5 mg Documented by: Polyethylene Glycol (Polyethylene Glycol 3350 17 Gm Packet) 17 gm PO DAILYP PRN PRN Reason: Constipation Last Admin: 03/09/22 09:38 Dose: 17 gm Documented by: Promethazine HCl (Promethazine 25 Mg/Ml Vial) 12.5 mg IM Q6HP PRN; Protocol PRN Reason: Nausea And Vomiting Senna/Docusate Sodium (Sennosides/Docusate Sodium 1 Tab Tablet) 1 tab PO HS [facility] Last Admin: 03/09/22 20:38 Dose: 1 tab Documented by: Sodium Biphosphate/Sodium Phosphate (Fleets Adult Enema) 1 dose MI Q3-4DAYS PRN PRN Reason: Constipation Sodium Chloride (0.9 % Sodium Chloride 10 Ml Syringe) 10 ml IV Q8 [facility] Last Admin: 03/10/22 09:13 Dose: 10 ml Documented by: Tamsulosin HCl (Tamsulosin 0.4 Mg Capsule) 0.4 mg PO HS [facility] Temazepam (Temazepam 15 Mg Capsule) 15 mg PO HSP PRN PRN Reason: Insomnia A/P Assessment and plan (1) Closed hip fracture: Status: Acute Comment: mobilize with PT Plan discharge today. Narrative A/P Narrative: 2 day s/p R periprosthetic fx with ORIF Plan of Treatment: cont medical management per hospitalist. Mobilize with PT discharge to SNF versus Swing bed 1-2 days. Time Spent With Patient Time: Total time spent is greater than 50% in coordination of care (as documented) at patient's floor/unit and/or counseling patient:
[2022-03-10] MEDS ORDERED: TAMSULOSIN 0.4 MG CAPSULE PO SCH (21:00)
--- NOTE | 2022-03-11 08:00 | Operative Note ---
DATE OF OPERATION: 03/08/2022 PREOPERATIVE DIAGNOSIS: Same level fall with a periprosthetic femur, right hip POSTOPERATIVE DIAGNOSES: 1. Same level fall with a periprosthetic femur, right hip. 2. Acute pneumonia. PROCEDURE: Right periprosthetic fracture open reduction and internal fixation with two cables as well as revision of his femoral stem to a Congregational modular stem, 285 mm in total length with a 20 mm proximal body with a 36 mm head with a +7.5 neck length. SURGEON: Jaciel Sibley MD STAMPING BENCH DIE MAKER: ESTIMATED BLOOD LOSS: About 250 mL. BLOOD PRODUCTS GIVEN AND URINE OUTPUT: None. DISPOSITION: To PACU. DESCRIPTION OF PROCEDURE: The patient was brought to the operating room, put to sleep with general LMA anesthesia. Once asleep, the right leg was sterilely prepped and draped. We confirmed the operative site by initials, consent form, and x-rays. He was turned into a left lateral. After placing Ioban over the skin we then made an incision through his prior scar and extended this distally to where the fracture was. We went through the fascial layer of the IT band. The mid-vastus lateralis was incised and we identified the fracture. An open reduction of the fracture was achieved and we placed two cables with temporary fixation. The femoral stem was then dislocated from the hip, removing the 36 mm ball and an osteotome was used to remove the stem. A slap hammer was placed. This was tapped out of place with good ingrowth into the implant. I was able to then place a canal finder and a reamer. This was reamed up to the size of 16. We then took an x-ray to confirm its placement in the distal fragment of 100 mm or more. Once this was confirmed as being placed 100 mm into the distal fragment or more, the final implant was placed. A 16 mm 285 mm long stem was placed. The proximal body was trialed with a 20 mm proximal body after reaming to a 21 mm diameter. After placing 15 degrees of anteversion we then placed a 36 mm ball with a 5 mm neck length. This seemed equal leg length. The hip on testing this was not as stable as we would like starting to ride out of the joint at about 60 degrees of rotation. We irrigated thoroughly and then put into place a 7.5 mm neck length, 36 mm ball. The final implant was placed. This was very stable through the full arc of motion without any subluxation. We irrigated thoroughly and then retensioned the cables, which were crimped into place. We then repaired the fascial layers, the mid-vastus lateralis. We repaired the IT band and gluteus madhav with a Stratafix suture. I closed the skin with Stratafix and 2-0 Vicryl and then fidel superficially. Sterile bandage was applied. The patient tolerated this well. There were no complications. Total blood loss about 250 mL. No blood products. Preoperative antibiotics and tranexamic acid given. RBH:kh Job ID: [id number] Doc ID: [id number] Jaciel Sibley MD
== END 2022-03-10 13:50 | disposition home or self-care (01) | DRG 466 ==
LOC: ED 03:49 → MEDSUR 05:19
PROVIDERS: ADMIT Internal Medicine; ATTEND Internal Medicine